=== PATIENT | female | born 1970 ===

== ENCOUNTER 2025-03-18 10:58 | Outpatient (AMB) | payer BC, SELFPAY ==
[2025-03-18 11:06] VITALS: BMI 30.2
--- NOTE | 2025-03-18 11:06 | A.PHYSOV ---
Vital Signs 03/18/25 11:06 Height 5 ft 4 in Weight 176 lb BMI 30.2 Intake Visit Reasons: Follow up after injection 02/09/25 Intake Note: Patient is a 54 year old female here for follow up 02/09/25 Left C3-C4, C4-C5, C5-C6 facet injections. Manufacturing Engineer Required: No Allergies NSAIDS (Non-Steroidal Anti-Inflamma (NSAIDS (NON-STEROIDAL ANTI-INFLAMMA) Allergy (Intermediate, Verified 03/18/25 11:08) SWELLING AND HIVES Sulfa (Sulfonamide Antibiotics) (SULFA (SULFONAMIDE ANTIBIOTICS)) Allergy (Intermediate, Verified 03/18/25 11:08) SWELLING/HIVES ibuprofen Allergy (Unknown, Verified 03/18/25 11:08) Unknown HPI Comments Details: History of Present Illness The patient is a 54 year old individual presenting for follow-up of neck and low back pain after therapeutic injections. She underwent left C3-4, C4-5, C5-6 facet injection on 02/09/2025. She reports approximately 90% improvement in pain. Previously, the patient experienced pain with quick neck movements, which has now resolved, and the initial sensation of a stick down the neck with aching has dissipated. The patient has not required any pain medication for the last two weeks. The patient also received an injection for low back pain which is reportedly working well, and the patient's back is doing really well. The neck injection was cortisone targeting arthritis, and the back injection targeted a nerve. The patient reports a new complaint of muscle spasms and achiness between the shoulder blades, predominantly on the left side, which radiates up towards the neck. This area was also inflamed when the neck pain was severe. The patient previously used Vicodin for pain but disliked the associated side effects. She is overall very happy with her results. Pain Description - Neck Pain (pre-injection): Previously restricted quick movements, especially when driving. - Sensation: Described as a feeling of having a stick all the way down the neck, which was followed by an ache. - Interference: Caused difficulty finding a comfortable pillow for sleep. - Mid-back Pain (current): Described as muscle spasms and achiness between the shoulder blades, more so on the left side, that runs up to the neck. - Location: Achiness is also noted right on the spine in the mid-back which is sore to touch. Procedure: Right L5 TFESI 06/06/2024 90% reduction of her pain Right L5 TFESI 11/22/2024 90% reduction of her pain Left C3-4, C4-5, C5-6 facet injection 90% relief FOR[facility]LY [facility], [facility] Surgical History (Updated 03/18/25 @ 11:09 by Divina Medina MA) H/O foot surgery H/O tubal ligation H/O shoulder surgery History of cholecystectomy Previous section Social History Alcohol intake: current Alcohol intake frequency: holidays/special occasions only Patient Tobacco Use Status: Never used Tobacco Use of substances other than those prescribed or required for medical reasons: Yes Substance Use Type: Marijuana Review of Systems Narrative Review of Systems - Musculoskeletal: Reports resolving neck and low back pain. - Reports new-onset muscle spasms and achiness between the shoulder blades. - Reports improved posture. - Neurological: Reports improved concentration. - Constitutional: Reports improved sleep. Physical Exam Exam Exam: Physical Exam Cervical Spine: Examination of the cervical spine, she is less tender to the left cervical paraspinal musculature. She has full range of motion of the cervical spine in all planes. Special Tests: Axial Compression test: Negative Spurlings test: Negative Lhermitte's sign is Negative Upper Extremities: Full range of motion bilateral upper extremities. Equal extractor operator helper strength bilaterally. Neuro: Sensation: Intact to upper extremities bilateral to light touch Strength C5 (Elbow Flexion): 5/5 on the left and 5/5 on the right. C6 (Elbow Ext): 5/5 on the left and 5/5 on the right. C7 (Elbow Ext): 5/5 on the left and 5/5 on the right. C8 (Finger Flex): 5/5 on the left and 5/5 on the right. T1 (Finger Abd/Add): 5/5 on the left and 5/5 on the right. DTR: C5 (Biceps): Left 2 Right 2 C6 (Brachioradialis): Left 2 Right 2 C7 (Triceps): Left 2 Right 2 Becerra sign: Negative No pathologic clonus. No involuntary movement. Vital Signs: BMI result Body Mass Index 30.2 Assessment & Plan Assessment & Plan (1) Cervicalgia: Code(s): M54.2 - Cervicalgia Category: Medical (2) Cervical radiculopathy: Code(s): M54.12 - Radiculopathy, cervical region Category: Medical Plan Pain Management - Affect: The patient feels pretty peaceful regarding physical pain reports improved concentration and sleep. - Analgesia: The patient reports 90% improvement in neck pain following a cortisone injection on February 09. - The patient has not used any pain medications for the past two weeks. - Adverse Effects: The patient dislikes the way Vicodin makes the patient feel. - Activities of Daily Living: The patient is now able to perform quick neck movements without pain, has improved posture, and is sleeping better. - Aberrant Drug Related Behaviors: None noted; the patient expressed an aversion to restarting opioid pain medication. Plan Patient was informed and verbally consented to the use of an ambient scribe for clinic note documentation during this visit. 1. Cervicalgia And Cervical Spondylosis The patient has experienced significant (90%) relief from neck pain following a cortisone injection on February 09, which targeted cervical arthritis. The beneficial effects of the injection typically last 3-6 months, though this can vary. If the pain returns, the patient is advised to contact the clinic for a possible repeat injection. 2. Low Back Pain The patient reports significant improvement in low back pain following a nerve-targeted injection. The current plan is to continue monitoring symptoms. 3. Myalgia Of Mid-Back The patient presents with a new complaint of muscle spasms and achiness in the mid-back and interscapular region, which is tender to palpation and thought to be muscular in origin. A muscle relaxer will be prescribed for nighttime use to help with symptoms and sleep. The patient was provided with a handout of exercises to help strengthen the spine. If the pain persists despite these interventions, a workup with an X-ray or MRI will be considered at the next follow-up visit. We discussed the benefits of proper nutrition and exercise to maintain a healthy body weight to improve longevity and function. We also discussed the benefits of proper lifting techniques, core strengthening and proper posture. Thank you for allowing me to participate in the care of your patient. Coding Level of Care Code Tele Est Pt Level 3 (09270) Diagnoses Cervicalgia M54.2 Cervical radiculopathy M54.12
--- OUTSIDE RECORDS SUMMARY | 2025-03-18 13:33 | XMS_ITS | Encounter Summary ---
Author Organization [facility] Address [address] [place] [address] Phone Support Name Relationship Address Phone Tang Torres Emergency Contact [address] [place] [address] Care Team Providers Care Manual Winder Name Role Phone Amita Desir MD Primary Care Prov ider Amita Desir MD Primary Care Prov ider Amita Desir MD Unavailable + Cristine Erwin MD Primary Care Provider Encounter Details Date Type Department Care Team (Latest Contact Info) Description 11/23/2017 Transcribe Orders [address] [place] [address] Zac Barbour PA [address] [place] [phone] Myalgia (Primary Dx); Hypothyroidism, unspecified type; Deficiency of other specified B group vitamins Social History Tobacco Use Types Packs/Day Years Used Date Smoking Tobacco: Never Assessed Comments Unknown Sex and Gender Information Value Date Recorded Sex Assigned at Female 04/14/2020 1:18 PM EST Legal Sex Female 8:47 AM EDT Gender Identity Female 04/14/2020 1:18 PM EST Sexual Orientation Choose not to disclose 2019 1:18 PM EST documented as of this encounter Plan of Treatment Not on file documented as of this encounter Results * Vitamin B12 (11/23/2017 8:58 AM EDT) VITAMIN B12 362 232 - 1,245 pg/mL [facility] Blood 11/23/2017 8:58 AM EDT 11/23/2017 9:04 AM EDT us Zac Barbour PA LAB BLOOD BKR ORDERABLES Final Result [address] [address] * (ABNORMAL) 25-OH vitamin D (11/23/2017 8:58 AM EDT) 25 OH VIT D (TOTAL) 15(L) 30 - 60 ng/mL [facility] Blood 11/23/2017 8:58 AM EDT 11/23/2017 9:04 AM EDT Zac Barbour PA LAB BLOOD BKR ORDERABLES Final Result Performing Organization Address [facility]/ZIP Co de Phone Number [address] [address] * Free T4 (11/23/2017 8:58 AM EDT) FREE T4 1.5 0.9 - 1.7 ng/dL [facility] Blood 11/23/2017 8:58 AM EDT 11/23/2017 9:04 AM EDT Zac Barbour PA LAB BLOOD BKR ORDERABLES Final Result Performing Organization Address [facility]/ZIP Co de Phone Number [address] [address] * TSH with reflex (11/23/2017 8:58 AM EDT) TSH 1.31 0.27 - 4.20 uIU/mL [facility] Blood 11/23/2017 8:58 AM EDT 11/23/2017 9:04 AM EDT us Zac VERA LAB BLOOD BKR ORDERABLES Final Result [address] [address] * Comprehensive metabolic panel (11/23/2017 8:58 AM EDT) SODIUM 141 133 - 146 mmol/L [facility] POTASSIUM 4.5 3.3 - 5.1 mmol/L [facility] CHLORIDE 102 96 - 108 mmol/L [facility] CO2 27 21 - 35 mmol/L [facility] BUN 10 6 - 19 mg/dL [facility] CREATININE 0.70 0.5 - 1.5 mg/dL [facility] GLUCOSE 89 70 - 99 mg/dL [facility] ALBUMIN 4.2 3.9 - 4.8 g/dL [facility] TOTAL PROTEIN 7.6 6.5 - 8.0 g/dL [facility] CALCIUM 9.1 8.4 - 10.3 mg/dL [facility] ALKALINE PHOSPHATASE 95 39 - 117 U/L [facility] TOTAL BILIRUBIN 0.5 0.0 - 1.2 mg/dL [facility] AST 18 0 - 37 U/L [facility] ALT 13 0 - 40 U/L [facility] GLOBULIN 3.4 1 - 4.8 g/dL [facility] EGFR 104 >59 mL/min/1.7 3m2 [facility] Comment:If patient is black, multiply result by 1.159. Estimated glomerular filtration rate calculated using the CKD-EPI equation. ANION GAP 17 10 - 20 mmol/L [facility] Blood 11/23/2017 8:58 AM EDT 11/23/2017 9:04 AM EDT us Zac VERA LAB BLOOD BKR ORDERABLES Final Result [address] [address] * CBC (11/23/2017 8:58 AM EDT) WBC 6.22 3.40 - 11.20 K/uL [facility] RBC 4.34 3.80 - 4.80 M/uL [facility] HGB 14.1 12.0 - 15.0 g/dL [facility] HCT 40.8 36.0 - 46.0 % [facility] PLT 232 130 - 400 K/uL [facility] MCV 94.0 79.0 - 98.0 fL [facility] MCH 32.5 27.0 - 34.8 pg [facility] MCHC 34.6 31.5 - 36.0 g/dL [facility] RDW 11.9 10.8 - 14.6 % [facility] MPV 9.4 9.4 - 12.4 fl [facility] NRBC 0.00 /100 WBCs [facility] ABSOLUTE NRBC 0.00 K/uL [facility] Blood 11/23/2017 8:58 AM EDT 11/23/2017 9:04 AM EDT us Zac VERA LAB BLOOD BKR ORDERABLES Final Result Performing Organization Address City/[facility]/ZIP Co de Phone Number [address] [address] * (ABNORMAL) Antinuclear antibody (TARAS) (11/23/2017 8:58 AM EDT) TARAS SCREEN ON HEP 2 Positive(A ) Negative [facility] Comment:An TARAS Titer has bee n reflexed. The results will follow. Blood 11/23/2017 8:58 AM EDT 11/23/2017 9:04 AM EDT Zac VERA LAB BLOOD BKR ORDERABLES Final Result Performing Organization Address City/[facility]/ZIP Co de Phone Number [address] [address] * Aldolase (11/23/2017 8:58 AM EDT) ALDOLASE 3.4 <7.7 U/L [facility] AND PAT+ Blood 11/23/2017 8:58 AM EDT 11/23/2017 9:04 AM EDT us Zac VERA LAB BLOOD ORDERABLES Final Res ult [facility] DPT OF LAB MED AND PAT+ [address] [place] [address] * Magnesium (11/23/2017 8:58 AM EDT) MAGNESIUM 2.0 1.6 - 2.6 mg/dL [facility] Blood 11/23/2017 8:58 AM EDT 11/23/2017 9:04 AM EDT us Zac VERA LAB BLOOD BKR ORDERABLES Final Result Performing Organization Address [facility] Co de Phone Number [address] [address] * CPK (creatine kinase) (11/23/2017 8:58 AM EDT) CREATINE KINASE 82 21 - 215 U/L [facility] Blood 11/23/2017 8:58 AM EDT 11/23/2017 9:04 AM EDT Zac VERA LAB BLOOD BKR ORDERABLES Final Result Performing Organization Address City/[facility] Co de Phone Number [address] [address] documented in this encounter Visit Diagnoses Diagnosis Myalgia- Primary Unspecified myalgia and myositis Hypothyroidism, unspecified type Deficiency of other specified B group vitamins documented in this encounter Additional Health Concerns Infection Onset Date Last Indicated Resolved Time CoV-Risk 10/29/2023 10/29/2023 11/09/2023 1:22 AM EDT documented as of this encounter Care Teams Manual Winder Relationship Specialty Start Date End Date Amita Desir MD [address] [phone] PCP - General Internal Medicine 11/23/17 04/12/20 Amita Desir MD [address] [place] [phone] PCP - General Internal Medicine 04/13/20 10/16/22 Cristine Erwin MD [address] [place] [address] PCP - General Family Medicine 10/17/22 Amita Desir MD [address] [place] [phone] Internal Medicine 04/13/20 documented as of this encounter Additional Source Comments The information contained in this document represents components of the legal health record. It is not the complete legal health record.[facility]
--- OUTSIDE RECORDS SUMMARY | 2025-03-18 13:33 | XMS_ITS | Encounter Summary ---
Author Organization [facility] Address [address] [place] [address] Phone Support Name Relationship Address Phone Tang Torres Emergency Contact [address] [place] [address] Care Team Providers Care Vacuum Closing Machine Operator Name Role Phone Amita Desir MD Unavailable + Cristine Erwin MD Primary Care Provider [phone] Encounter Details Date Type Department Care Team (Late st Contact Info) Description 08/02/2023 Procedure Pass [facility], Ct Scan - [facility] [address] [place] [address] Social History Tobacco Use Types Packs/Day Years Used Date Smoking Tobacco: Former Cigarettes 2 2016 Smokeless Tobacco: Never Comments:1 pack a week Alcohol Use Standard Drinks/Week Comments Yes 0 (1 standard drink = 0.6 oz pur e alcohol) occasionally Education Answer Date Recorded Are you interested in more education? Not on jj e 08/18/2022 Are you concerned about learning? Not on file 08/18/2022 No 08/18/2022 No 08/18/2022 Digital Access Answer Date Recorded No 09/14/2022 No 09/14/2022 Reliable internet access at home? Not on file 09/14/2022 Device with a working camera? Not on file Intimate Partner Violence Answer Date R ecorded Are you denied basic needs s uch as food, clothing, or medical care? No 08/02/2023 In the past 12 months have y ou been in a relationship with a person who hurts, threatens, or tries to control you? No 08/02/2023 Are you denied basic needs s uch as food, clothing, or medical care? No 08/02/2023 In the past 12 months have y ou been in a relationship with a person who hurts, threatens, or tries to control you? No 08/02/2023 Comments No Sex and Gender Information Value Date Recorded Sex Assigned at Female 04/14/2020 1:18 PM EST Legal Sex Female 8:47 AM EDT Gender Identity Female 04/14/2020 1:18 PM EST Sexual Orientation Choose not to disclose 2019 1:18 PM EST documented as of this encounter Functional Status * Calculated C-SSRS Risk Score (Lifetime/Recent) Answer Date of Assessment Author No Risk Indicated 08/02/2023 12:55 PM EDT Estella Camargo RN * [place] Suicide Severity Rating Scale (Screener/Recent Self-Report) Question Answer Date of Assessment Author 1. Wish to be (Past 1 Month) No 08/02/2023 12:55 PM EDT Evangelist Parker RN 2. Non-Specific Active Suicidal Thoughts (Past 1 Month) No 08/02/2023 12:55 PM EDT Evangelist Parker RN 6. Suicidal Behavior (Lifetime) No 08/02/2023 12:55 PM EDT Evangelist Parker RN documented as of this encounter Plan of Treatment Not on file documented as of this encounter Visit Diagnoses Not on filedocumented in this encounter Additional Health Concerns Infection Onset Date Last Indicated Resolved Time CoV-Risk 10/29/2023 10/29/2023 11/09/2023 1:22 AM EDT documented as of this encounter Care Teams Vacuum Closing Machine Operator Relationship Specialty [place] [address] [place] [phone] PCP - General Family Medicine 10/17/22 Amita Desir MD [facility] [address] [phone] Internal Medicine 04/13/20 documented as of this encounter Additional Source Comments The information contained in this document represents components of the legal health record. It is not the complete legal health record.[facility]
--- OUTSIDE RECORDS SUMMARY | 2025-03-18 13:33 | XMS_ITS | Encounter Summary ---
Author Organization [facility] Address [address] [place] [address] Phone Support Name Relationship Address Phone Tang Torres Emergency Contact [address] [place] [address] Care Team Providers Care Warehouse Administrator Name Role Phone Amita Desir MD Primary Care Prov ider Amita Desir MD Primary Care Prov ider Amita Desir MD Unavailable + Cristine Erwin MD Primary Care Provider [phone] Encounter Details Date Type Department Care Team (Latest Contact Info) Description 12/20/2017 Transcribe Orders [address] [place] [address] Zac Barbour PA [address] [place] [phone] Arthralgia, unspecified joint (Primary Dx) Social History Tobacco Use Types Packs/Day Years [...] documented as of this encounter Results * C-Reactive Protein (12/20/2017 4:59 PM EDT) Pathologist [facility] C REACTIVE PROTEIN 2.3 0.0 - 4.0 mg/L [facility] Blood 12/20/2017 4:59 PM EDT 12/20/2017 5:17 PM EDT Zac Km PA LAB BLOOD BKR ORDERABLES Final Result Performing Organization Address [facility]/ZIP Co de Phone Number [address] [address] * Sedimentation rate (ESR) (12/20/2017 4:59 PM EDT) [facility] ESR 2 0 - 20 mm/h [facility] Blood 12/20/2017 4:59 PM EDT 12/20/2017 5:17 PM EDT Zac Km PA LAB BLOOD BKR ORDERABLES Final Result Performing Organization Address [facility] Co de Phone Number [address] [address] * Lyme screen with reflex to Western blot, blood (12/20/2017 4:59 PM EDT) [facility] Lyme AB IgG Negative Negative [facility] Lyme AB IgM Negative Negative [facility] Blood 12/20/2017 4:59 PM EDT 12/20/2017 5:17 PM EDT Zac Bourgeoisden PA LAB BLOOD BKR ORDERABLES Final Result Performing Organization Address [facility] Co de Phone Number [address] [address] * Rheumatoid factor (12/20/2017 4:59 PM EDT) [facility] RHEUMATOID FACTOR <10.0 0.0 - 14.0 IU/ml [facility] Blood 12/20/2017 4:59 PM EDT 12/20/2017 5:17 PM EDT Zac VERA LAB BLOOD BKR ORDERABLES Final Result [facility] [address] [place], [place] [id number] * Parvovirus B19 antibodies, IgG, IgM (12/20/2017 4:59 PM EDT) Pathologist [facility] PARVO B19 IGG Positive Negative [facility] PARVO B19 IGM Negative Negative [facility] PARVO B19 INTERP SEE NOTE [facility] Comment: (NOTE) Results suggest past infection. ADDITIONAL INFORMATION This test has been modified from the news librarian's instructions. Its performance characteristics were determined by [facility] in a manner consistent with CLIA requirements. This test has not been cleared or approved by the U.S. Food and Drug Administration. Blood 12/20/2017 4:59 PM EDT 12/20/2017 5:17 PM EDT Zac VERA LAB BLOOD ORDERABLES Final Res ult Performing Organization Address [facility] Co de Phone Number [facility] [address] [place] [place] [address] * HLA-B27, blood (12/20/2017 4:59 PM EDT) Pathologist [facility] HLA-B27 RESULT Negative Not Applicable [facility] DPT OF LAB MED AND PAT+ INTERPRETATION SEE NOTE [facility] DPT OF LAB MED AND PAT+ Comment: (NOTE) HLA-B27 antigen was not detected. ADDITIONAL INFORMATION Method: Flow Cytometry Performing Laboratory CLIA# [id number] Blood 12/20/2017 4:59 PM EDT 12/20/2017 5:17 PM EDT us Zac VERA LAB BLOOD ORDERABLES Final Res ult [facility] DPT OF LAB MED AND PAT+ [address] [place] [address] * Uric acid (12/20/2017 4:59 PM EDT) URIC ACID 5.5 2.4 - 7.0 mg/dL [facility] Blood 12/20/2017 4:59 PM EDT 12/20/2017 5:17 PM EDT us Zac VERA LAB BLOOD BKR ORDERABLES Final Result Performing Organization Address City/[facility]/ZIP Co de Phone Number [facility] [address] [place] [address] documented in this encounter Visit Diagnoses Diagnosis Arthralgia, unspecified joint- Primary documented in this encounter Additional Health Concerns Infection Onset Date Last Indicated Resolved Time CoV-Risk 10/29/2023 10/29/2023 11/09/2023 1:22 AM EDT documented as of this encounter Care Teams Warehouse Administrator Relationship Specialty Start Date End Date Amita Desir MD [address] [place] [phone] PCP - General Internal Medicine 11/23/17 04/12/20 Amita Desir MD [address] [place] [phone] PCP - General Internal Medicine 04/13/20 10/16/22 Cristine Erwin MD [address] [place] [address] PCP - General Family Medicine 10/17/22 Amita Desir MD [address] [place] [address] [place] [phone] Internal Medicine 04/13/20 documented as of this encounter Additional Source Comments The information contained in this document represents components of the legal health record. It is not the complete legal health record.[facility]
--- OUTSIDE RECORDS SUMMARY | 2025-03-18 13:34 | XMS_ITS | Encounter Summary ---
Author Organization [facility] Address [address] [place] [address] [place] [address] Phone Support Name Relationship Address Phone Tang Torres Emergency Contact [address] [place] [address] Care Team Providers Care Vehicle Maintenance Technician Name Role Phone Amita Desir MD Primary Care Prov ider Amita Desir MD Unavailable + Cristine Erwin MD Primary Care Provider Encounter Details Date Type Department Care Team (Late st Contact Info) Description 11/03/2020 Ancillary Orders [facility], X-Ray - [address] [place] [address] Milady Rainey, STOCK BLENDER [address] [place] [phone] [email or web address] [employer] Right shoulder pain, unspecified chronicity Social History Tobacco Use Types Packs/Day Years Used Date Smoking Tobacco: Never Smokeless Tobacco: Never Alcohol Use Standard Drinks/Week Comments Not Currently 0 (1 standard drink = 0.6 oz pur e alcohol) Comments Unknown Sex and Gender Information Value Date Recorded Sex Assigned at Female 04/14/2020 1:18 PM EST Legal Sex Female 8:47 AM EDT Gender Identity Female 04/14/2020 1:18 PM EST Sexual Orientation Choose not to disclose 2019 1:18 PM EST documented as of this encounter Plan of Treatment Not on file documented as of this encounter Visit Diagnoses Diagnosis Right shoulder pain, unspecified chronicity documented in this encounter Additional Health Concerns Infection Onset Date Last Indicated Resolved Time CoV-Risk 10/29/2023 10/29/2023 11/09/2023 1:22 AM EDT documented as of this encounter Care Teams Vehicle Maintenance Technician Relationship Specialty Start Date End Date Amita Desir MD [address] [place] [phone] PCP - General Internal Medicine 04/13/20 10/16/22 Cristine Erwin MD [address] [place] [phone] PCP - General Family Medicine 10/17/22 Amita Desir MD [address] [place] [phone] Internal Medicine 04/13/20 documented as of this encounter Additional Source Comments The information contained in this document represents components of the legal health record. It is not the complete legal health record.[facility]
--- OUTSIDE RECORDS SUMMARY | 2025-03-18 13:34 | XMS_ITS | Encounter Summary ---
Author Organization [facility] Address [address] [place] [address] [place] [address] Phone Support Name Relationship Address Phone Tang Torres Emergency Contact [address] [facility] [address] [place] [address] Care Team Providers Care Roasterman Name Role Phone Amita Desir MD Primary Care Prov ider Amita Desir MD Unavailable + Cristine Erwin MD Primary Care Provider [phone] Encounter Details Date Type Department Care Team (Late st Contact Info) Description 01/14/2021 Procedure Pass [place] Admitting Dept - Virtual Department [address] [place] [address] Social History Tobacco Use Types Packs/Day Years Used Date Smoking Tobacco: Former Cigarettes 2 2016 Smokeless Tobacco: Never Comments:1 pack a week Alcohol Use Standard Drinks/Week Comments Never 0 (1 standard drink = 0.6 oz pur e alcohol) Comments No Sex and Gender Information Value [...] documented as of this encounter Care Teams Roasterman Relationship Specialty Start Date End Date Amita Desir MD [address] [place] [phone] PCP - General Internal Medicine 04/13/20 10/16/22 Cristine Erwin MD [address] [place] [phone] PCP - General Family Medicine 10/17/22 Amita Desir MD [address] [place] [phone] Internal Medicine 04/13/20 documented as of this encounter Additional Source Comments The information contained in this document represents components of the legal health record. It is not the complete legal health record.[facility]
--- OUTSIDE RECORDS SUMMARY | 2025-03-18 13:34 | XMS_ITS | Encounter Summary ---
Author Organization [facility] Address [address] [place] [address] [place] [address] Phone Support Name Relationship Address Phone Tang Torres Emergency Contact [address] [place] [address] Care Team Providers Care Nutritionalist Name Role Phone Amita Desir MD Primary Care Prov ider Amita Desir MD Unavailable + Cristine Erwin MD Primary Care Provider [phone] Encounter Details Date Type Department Care Team (Late st Contact Info) Description 10/12/2020 Procedure Pass [facility], [address] [place] [address] Social History Tobacco Use Types Packs/Day Years [...] documented as of this encounter Care Teams Nutritionalist Relationship Specialty Start Date End Date Amita Desir MD [address] [phone] PCP - General Internal Medicine 04/13/20 10/16/22 Cristine Erwin MD [address] [place] [phone] PCP - General Family Medicine 10/17/22 [place] [address] [place] [phone] Internal Medicine 04/13/20 documented as of this encounter Additional Source Comments The information contained in this document represents components of the legal health record. It is not the complete legal health record.[facility]
--- OUTSIDE RECORDS SUMMARY | 2025-03-18 13:34 | XMS_ITS | Encounter Summary ---
Author Organization [facility] Address [address] [place] [address] [place] [address] Phone Support Name Relationship Address Phone Tang Torres Emergency Contact [address] [place] [address] Care Team Providers Care Php Engineer Name Role Phone Amita Desir MD Primary Care Prov ider Amita Desir MD Unavailable + Cristine Erwin MD Primary Care Provider Encounter Details Date Type Department Care Team (Latest Contact Info) Description 06/21/2020 Ancillary Orders Virtual Department [address] [place] [address] Milady Rainey, BUTTON RECLAIMER [address] [place] [phone] [email or web address] Cervical radiculopathy Social History Tobacco Use Types Packs/Day Years [...] documented as of this encounter Results * XR CERVICAL SPINE 4-5 VIEWS (06/22/2020 1:08 PM EST) Anatomical Region Laterality Modality C-spine Computed Radiogr aphy 06/22/2020 1:02 PM EST Impressions 06/22/2020 1:05 PM EST Mild C5-6 and C6-7 disc disease and mild bilateral C6-7 neural foraminal stenosis. Narrative 06/22/2020 1:05 PM EST HISTORY: As above. COMPARISON: None. CERVICAL SPINE RADIOGRAPH FINDINGS: 5 images obtained. Mild reversal of lordosis at C5. No fracture or malalignment. Minimal C5-6 and C6-7 disc space narrowing with mild anterior wedging and endplate spurring. Mild multilevel facet arthropathy. Mild bilateral C6-7 neural foraminal stenosis due to spurring. No cervical ribs. No destructive or suspicious bone lesions. Prevertebral soft tissues are normal. Imaged lung apices are clear. Procedure Note Stewart Elizabeth MD - 06/22/2020 HISTORY: As above. COMPARISON: None. CERVICAL SPINE RADIOGRAPH FINDINGS: 5 images obtained. Mild reversal of lordosis at C5. No fracture or malalignment. Minimal C5-6and C6-7 disc space narrowing with mild anterior wedging and endplatespurring. Mild multilevel facet arthropathy. Mild bilateral C6-7 neuralforaminal stenosis due to spurring. No cervical ribs. No destructive orsuspicious bone lesions. Prevertebral soft tissues are normal. Imaged lungapices are clear. IMPRESSION: Mild C5-6 and C6-7 disc disease and mild bilateral C6-7 neural foraminalstenosis. Milady Rainey NP IMG XR SPINE Final Result documented in this encounter Visit Diagnoses Diagnosis Cervical radiculopathy Brachial neuritis or radiculitis nos Cervical radiculopathy Brachial neuritis or radiculitis nos documented in this encounter Additional Health Concerns Infection Onset Date Last Indicated Resolved Time CoV-Risk 10/29/2023 10/29/2023 11/09/2023 1:22 AM EDT documented as of this encounter Care Teams Php Engineer Relationship Specialty Start Date End Date Amita Desir MD [address] [place] [phone] PCP - General Internal Medicine 04/13/20 10/16/22 Cristine Erwin MD [address] [place] [phone] PCP - General Family Medicine 10/17/22 Aimta Desir MD [address] [place] [phone] Internal Medicine 04/13/20 documented as of this encounter Additional Source Comments The information contained in this document represents components of the legal health record. It is not the complete legal health record.[facility]
--- OUTSIDE RECORDS SUMMARY | 2025-03-18 13:34 | XMS_ITS | Encounter Summary ---
Author Organization [facility] Address [address] [place] [address] [place] [phone] Phone Support Name Relationship Address Phone Tang Torres Emergency Contact [address] [place] [address] Care Team Providers Care Pigs Feet Cleaner Name Role Phone Amita Desir MD Primary Care Prov ider Amita Desir MD Unavailable + Cristine Erwin MD Primary Care Provider [phone] Reason for Referral * MRI/CAT Scan - Closed Specialty Diagnoses / Procedures Referred By Contwayne t Referred To Contact Radiology Diagnoses Strain of musc/tend the rotator cuff of right shoulder, subs Pain and swelling of right shoulder Procedures MRI Shoulder (Right) CHG MRI, JOINT UPPER EXTREM CHG MRI, JOINT UPPER EXTREM W/CONTRAST CHG MRI, JOINT UPPER EXTREM COMBO Milady Rainey NP [address] [place] [address] Phone: tel: fax: [email or web address] [address] [place] [address] Phone: tel: Referral ID Status Reason Start Date Expiration Date Visits Re quested Visits Authorized [id number] Closed 11/17/2020 01/15/2021 1 1 Encounter Details Date Type Department Care Team (Latest Contact Info) Description 10/12/2020 Transcribe Orders Virtual Department [address] [place] [phone] Milady Rainey, SLAB PULLER [address] [place] [phone] [email or web address] Strain of musc/tend the rotator cuff of right shoulder, subs (Primary Dx); Pain and swelling of right shoulder Social History Tobacco Use Types Packs/Day Years [...] documented as of this encounter Results * MRI SHOULDER WITHOUT CONTRAST (RIGHT) (11/24/2020 8:52 AM EDT) Anatomical Region Laterality Modality Shoulder Right Magnetic Resonan ce 11/24/2020 8:57 AM EDT Impressions 11/24/2020 9:04 AM EDT 1.Partial-thickness supraspinatus tendon tear. 2.Lateral acromial downsloping and spurring which may contribute to rotator cuff impingement. 3.Small joint effusion. 4.Bursitis. Narrative 11/24/2020 9:04 AM EDT COMPARISON: Right shoulder x-ray 11/03/2020. TECHNIQUE: Exam performed on a 1.5 Chani high-field MRI scanner. Axial T1 and proton density with fat suppression, oblique coronal proton density with fat suppression and T2 with fat suppression, oblique sagittal T1 and T2 with fat suppression sequences were obtained. MRI RIGHT SHOULDER FINDINGS: Acromion: No os acromiale. Type II acromion. Mild lateral downsloping and small osteophyte causing mild mass-effect upon the supraspinatus tendon. No anterior downsloping. Rotator cuff muscle/tendon: Small area of intrasubstance fluid signal intensity within the supraspinatus tendon. No rotator cuff muscle edema or atrophy. Labrum/biceps tendon: Small amount of fluid in the bicipital groove. No biceps tendon or labral tear. Bone marrow/joint: Joint spaces are preserved. No malalignment. No destructive or suspicious bone lesions. Small joint effusion. Small amount of fluid in the subcoracoid and subacromial subdeltoid bursa. No suprascapular or spinoglenoid notch mass. Procedure Note Stewart Elizabeth MD - 11/24/2020 COMPARISON: Right shoulder x-ray 11/03/2020. TECHNIQUE: Exam performed on a 1.5 Chani high-field MRI scanner. Axial T1and proton density with fat suppression, oblique coronal proton densitywith fat suppression and T2 with fat suppression, oblique sagittal T1 andT2 with fat suppression sequences were obtained. MRI RIGHT SHOULDER FINDINGS: Acromion: No os acromiale. Type II acromion. Mild lateral downsloping andsmall osteophyte causing mild mass-effect upon the supraspinatus tendon.No anterior downsloping. Rotator cuff muscle/tendon: Small area of intrasubstance fluid signalintensity within the supraspinatus tendon. No rotator cuff muscle edema oratrophy. Labrum/biceps tendon: Small amount of fluid in the bicipital groove. Nobiceps tendon or labral tear. Bone marrow/joint: Joint spaces are preserved. No malalignment. Nodestructive or suspicious bone lesions. Small joint effusion. Small amountof fluid in the subcoracoid and subacromial subdeltoid bursa. Nosuprascapular or spinoglenoid notch mass. IMPRESSION: 1.Partial-thickness supraspinatus tendon tear. 2.Lateral acromial downsloping and spurring which may contribute torotator cuff impingement. 3.Small joint effusion. 4.Bursitis. us Milady Rainey NP IMG MR EXTREMITY Final Result * XR SHOULDER 2 VIEWS (RIGHT) (11/03/2020 2:37 PM EDT) Anatomical Region Laterality Modality Shoulder Right Computed Radiogr aphy 11/03/2020 4:58 PM EDT Impressions 11/03/2020 4:58 PM EDT No fracture or dislocation. Narrative 11/03/2020 4:58 PM EDT XR SHOULDER 2 OR MORE VIEWS (RIGHT) COMPARISON: None FINDINGS: No fracture. Normal glenohumeral alignment and joint space. Normal acromioclavicular joint. Procedure Note Orquidea Elizabeth MD - 11/03/2020 XR SHOULDER 2 OR MORE VIEWS (RIGHT) COMPARISON: None FINDINGS: No fracture. Normal glenohumeral alignment and joint space. Normalacromioclavicular joint. IMPRESSION: No fracture or dislocation. Milady Rainey SLAB PULLER IMG XR UPPER EXTREMITY Final Res ult documented in this encounter Visit Diagnoses Diagnosis Strain of musc/tend the rotator cuff of right shoulder, subs- Primary Pain and swelling of right shoulder Strain of musc/tend the rotator cuff of right shoulder, subs Pain and swelling of right shoulder Strain of musc/tend the rotator cuff of right shoulder, subs Pain and swelling of right shoulder documented in this encounter Additional Health Concerns Infection Onset Date Last Indicated Resolved Time CoV-Risk 10/29/2023 10/29/2023 11/09/2023 1:22 AM EDT documented as of this encounter Care Teams Pigs Feet Cleaner Relationship Specialty Start Date End Date Amita Desir MD [id number] [address] [phone] PCP - General Internal Medicine 04/13/20 10/16/22 Cristine Erwin MD [address] [place] [phone] PCP - General Family Medicine 10/17/22 Amita Desir MD [address] [place] [phone] Internal Medicine 04/13/20 documented as of this encounter Additional Source Comments The information contained in this document represents components of the legal health record. It is not the complete legal health record.[facility]
--- OUTSIDE RECORDS SUMMARY | 2025-03-18 13:34 | XMS_ITS | Encounter Summary ---
Author Organization [facility] Address [address] [place] [address] Phone Support Name Relationship Address Phone Tang Torres Emergency Contact [address] [place] [address] Care Team Providers Care Early Childhood Lead Teacher Name Role Phone Amita Desir MD Primary Care Prov ider Amita Desir MD Primary Care Prov ider Amita Desir MD Unavailable + Cristine Erwin MD Primary Care Provider Encounter Details Date Type Department Care Team (Late st Contact Info) Description 09/18/2019 Transcribe Orders [address] [place] [address] Thien Jennings PA [address] [place] [address] Social History Tobacco Use Types Packs/Day Years [...] documented as of this encounter Care Teams Early Childhood Lead Teacher Relationship Specialty Start Date End Date Amita Desir MD [facility] [address] [phone] PCP - General Internal Medicine 11/23/17 04/12/20 Amita Desir MD [address] [place] [phone] PCP - General Internal Medicine 04/13/20 10/16/22 Cristine Erwin MD [address] [place] [phone] PCP - General Family Medicine 10/17/22 Amita Desir MD [address] [place] [phone] Internal Medicine 04/13/20 documented as of this encounter Additional Source Comments The information contained in this document represents components of the legal health record. It is not the complete legal health record.[facility]
--- OUTSIDE RECORDS SUMMARY | 2025-03-18 13:34 | XMS_ITS | Encounter Summary ---
Author Organization [employer] [facility] Address [address] [place] [address] [place] [address] Phone Support Name Relationship Address Phone Tang Torres Emergency Contact [address] [place] [address] Care Team Providers Care Petroleum Geologist Name Role Phone Amita Desir MD Primary Care Prov ider Amita Desir MD Unavailable + Cristine Erwin MD Primary Care Provider Encounter Details Date Type Department Care Team (Late st Contact Info) Description 04/13/2020 Procedure Pass [facility], Ct Scan - [facility] [address] [place] [address] Social History Tobacco Use Types Packs/Day Years [...] Date of Assessment Author No Risk Indicated 04/13/2020 1:08 PM EST Faraz Kent RN * [place] Suicide Severity Rating Scale (Screener/Recent Self-Report) Question Answer Date of Assessment Author 1. Wish to be (Past 1 Month) No 04/13/2020 1:08 PM Román Fontaine RN 2. Non-Specific Active Suici kalie Thoughts (Past 1 Month) No 04/13/2020 1:08 PM Luis A Fontaine RN 6. Suicidal Behavior (Lifetime) No 0 1:08 PM Faraz Fontaine, CURTIS documented as of this encounter Plan of Treatment Not on file documented as of this encounter Visit Diagnoses Not on filedocumented in this encounter Additional Health Concerns Infection Onset Date Last Indicated Resolved Time CoV-Risk 10/29/2023 10/29/2023 11/09/2023 1:22 AM EDT documented as of this encounter Care Teams Petroleum Geologist Relationship Specialty Start Date End Date Amita Desir MD [address] [place] [phone] PCP - General Internal Medicine 04/13/20 10/16/22 Cristine Erwin MD [address] [place] [phone] PCP - General Family Medicine 10/17/22 Amita Desir MD [address] [place] [phone] Internal Medicine 04/13/20 documented as of this encounter Additional Source Comments The information contained in this document represents components of the legal health record. It is not the complete legal health record.[facility]
--- OUTSIDE RECORDS SUMMARY | 2025-03-18 13:34 | XMS_ITS | Clinical Summary ---
Author Organization [facility] Address [address] [place] [phone] Phone Support Name Relationship Address Phone Tang Torres Emergency Contact [address] [place] [address] Care Team Providers Care Welder Manufacture Name Role Phone Amita Desir MD Unavailable + Cristine Erwin MD Primary Care Provider Allergies Active Allergy Reactions Criticality Noted Date Comments Sulfamethoxazole-Trimethopr im Hives,Swelling 04/13/2020 Black Dye Hives 12/06/2020 Gluten 12/06/2020 Ibuprofen 12/06/2020 Naproxen 12/06/2020 Nsaids (Non-Steroidal Anti-Inflammatory Drug) Hives,Rash,Swelling Low 04/13/2020 Itchy throat Sulfa (Sulfonamide Antibiotics) Rash,Swelling Low 04/30/2022 Medications methylphenidate HCl 27 MG CR tablet Take 27 mg by mouth daily. 1 Active levothyroxine (SYNTHROID, LEVOTHROID) 112 MCG tablet Take 100 mcg by mouth daily. Active levonorgestreL (LILETTA) 20.1 mcg/24 hrs (6 yrs) 52 mg IUD daily. Activ e gabapentin (NEURONTIN) 100 MG capsule Take 100 mg by mouth 3 (three) times a day. 1 Active ergocalciferol (DRISDOL) 50,000 unit capsule Take 1 capsule by mouth once a week. 1 Active cyanocobalamin, vitamin B-12, (VITAMIN B-12 ORAL) 0 Refills, Maintenance, 09/20/22 9:47:00 EDT, Partial fill upon patient request if the prescription is for a schedule II opioid drug. 3 Active escitalopram oxalate (LEXAPRO) 20 MG tablet Take 20 mg by mouth daily. Active levothyroxine 13 mcg/mL Soln 75 mcg 1 qd Act efe crisaborole (EUCRISA) 2 % ointment Apply by topical route for 60 days. Active Active Problems Problem Noted Date Diagnosed Date Acute sciatica 06/15/2024 Class 1 obesity 06/15/2024 Degenerative arthritis 06/15/2024 Vitamin D deficiency 06/07/2018 Depressive disorder 08/22/2012 Overview (06/15/2024): RECORDED 08/22/2012 1:51PM BY GEOVANNY MURPHY MA, OFFICE VISIT Bipolar disorder 08/22/2012 Overview (06/15/2024): RECORDED 08/22/2012 12:56PM BY GEOVANNY MURPHY MA, OFFICE VISIT Hypothyroidism 08/22/2012 Irritable bowel syndrome 08/22/2012 Migraine 08/22/2012 Overview (06/15/2024): RECORDED 08/22/2012 12:56PM BY GEOVANNY MURPHY MA, OFFICE VISIT Pure hypercholesterolemia 08/22/2012 Overview (06/15/2024): RECORDED 08/22/2012 1:51PM BY GEOVANNY MURPHY MA, OFFICE VISIT Allergic rhinitis 08/16/2012 Overview (06/15/2024): RECORDED 08/16/2012 10:22AM BY GEOVANNY MURPHY MA, ANNOTATION/ADDENDUM Chronic low back pain 08/16/2012 Overview (06/15/2024): IMPRESSION: NEW LOW BACK PAIN, PT WITH LOWER LUMBAR PAIN, NO WEAKNESS IN EXTREMEITIES, NO ROLE FOR MRI, HEAT, REST, MEDS BELOW, CANNOT TAKE MOTRIN, CALL IF NOT IMPROVING; RECORDED 08/16/2012 10:23AM BY GEOVANNY MURPHY MA, ANNOTATION/ADDENDUM Encounters Date Type Department Care Team Description 01/21/2025 7:47 AM EDT - 01/21/2025 11:59 PM EDT Hospital Encounter [facility] [address] [place] [address] Cristine Erwin MD Discharge Disposition: Home or Self Care 12/17/2024 4:20 PM EDT - 12/17/2024 7:05 PM EDT Emergency [facility] [address] [place] [address] Discharge Disposition: Home or Self Care from Last 3 Months Social History Tobacco Use Types Packs/Day Years Used Date Smoking Tobacco: Former Cigarettes 2 2016 Smokeless Tobacco: Never Tobacco Cessation:Counseling Given: Not Answered Comments:1 pack a week Alcohol Use Standard Drinks/Week Comments Yes 0 (1 standard drink = 0.6 oz pur e alcohol) occasionally Education Answer Date Recorded Are you interested in more education? Not on jj e 08/18/2022 Are you concerned about learning? Not on file 08/18/2022 No 08/18/2022 No 08/18/2022 Food Answer Date Recorded Within the past 6 months we worried whether our food would run out before we got money to buy more. Never True 12/17/2024 Within the past 6 months the food we bought just didn't last and we didn't have enough money to get more. Never True Residential Stability Answer Date Recor ded What is your housing situation today? I have ellie sing 12/17/2024 How many times have you move d in the past 12 months? Zero (I did not move) 12/17/2024 Paying for Meds Answer Date Recorded Do you have trouble paying for medicines? No 12/17/2024 Paying Utility Bills Answer Date Record ed Do you have trouble paying your heating or elect ricity bill? No 12/17/2024 Transportation Answer Date Recorded Has the lack of transportati on kept you from medical appointments or from getting medications? No 12/17/2024 Digital Access Answer Date Recorded No 12/17/2024 Yes 12/17/2024 Do you have reliable internet access at home? Ye s 12/17/2024 Do you have a device (e.g., phone, tablet, computer) with a working camera? Yes 12/17/2024 Intimate Partner Violence Answer Date R ecorded Are you denied basic needs s uch as food, clothing, or medical care? No 12/17/2024 In the past 12 months have y ou been in a relationship with a person who hurts, threatens, or tries to control you? No 12/17/2024 Are you denied basic needs s uch as food, clothing, or medical care? No 12/17/2024 In the past 12 months have y ou been in a relationship with a person who hurts, threatens, or tries to control you? No 12/17/2024 Comments No Sex and Gender Information Value Date Recorded Sex Assigned at Female 04/14/2020 1:18 PM EST Legal Sex Female 8:47 AM EDT Gender Identity Female 04/14/2020 1:18 PM EST Sexual Orientation Choose not to disclose 2019 1:18 PM EST Last Filed Vital Signs Vital Sign Reading Time Taken Comments Blood Pressure 127/88 12/17/2024 5:50 PM EDT Pulse 48 12/17/2024 5:50 PM EDT Temperature 37 C (98.6 F) 12/17/2024 5:50 PM EDT Respiratory Rate 18 12/17/2024 5:50 PM EDT Oxygen Saturation 99% 12/17/2024 5:50 PM EDT Inhaled Oxygen Concentration - - Weight 86.2 kg (190 lb) 12/17/2024 1:33 PM EDT Height 162.6 cm (5' 4 ) 12/17/2024 1:33 PM EDT Body Mass Index 32.61 12/17/2024 1:33 PM EDT Plan of Treatment Health Maintenance Due Date Last Done Comments DEPRESSION SCREENING 1982 SMOKING Hx and SMOKELESS TOBACCO SCREENING 12/02/1983 HEPATITIS C SCREENING 1988 HIV ONE-TIME SCREENING (18-65 YEARS) 1988 PAP SMEAR 12/02/1991 COLOGUARD 12/02/2015 COLONOSCOPY 12/02/2015 COLORECTAL CANCER SCREENING 12/02/2015 FIT TEST 12/02/2015 FOBT 12/02/2015 SIGMOIDOSCOPY 12/02/2015 VIRTUAL COLONOSCOPY 12/02/2015 MAMMOGRAM 07/08/2020 07/08/2018 PNEUMOCOCCAL VACCINES (50+ years) (1 of 1 - PCV) 2020 ZOSTER VACCINES (1 of 2) 2020 INFLUENZA VACCINE (#1) 2024 9, 02/07/2016, 12/22/2014, Additional history exists COVID-19 VACCINE ( season) 2024 03/10/2021, 07/24/2020, 07/03/2020 TSH LEVEL 01/21/2026 01/21/2025, 07/23, 04/09/2023, Additional history exists Adult Td,Tdap Booster 05/01/2026 05/01/2016 , 04/23/2015, 04/23/2013, Additional history exists SCREENING FOR DIABETES 01/22/2028 01/21/2025, 2023 LIPID PANEL 01/21/2030 01/21/2025, 12/24, 10/17/2022, Additional history exists RSV VACCINE (1 - 1-dose 75+ series) 2045 HEPATITIS A VACCINES Aged Out No long er eligible based on patient's age to complete this topic HIB VACCINES Aged Out No longer eligi ble based on patient's age to complete this topic MENINGOCOCCAL VACCINES (ACWY) Aged Out No longer eligible based on patient's age to complete this topic MENINGOCOCCAL VACCINES (B) Aged Out N o longer eligible based on patient's age to complete this topic Medical Devices Implanted Type Area Campaign Advisor Device Identifier Shelf Expiration Date Model / Serial / Lot Intrauterine Device Intrauterine Device [employer] NODATA Mouth Description:Metal Retainer Screw Implanted:Qty: 2 Screw Left: Foot [place] Suture 4.5mm Arthroscopy Reelx Stt Peek Ss Core Knotless Shapr Tip Expandable Bx/5ea - [id number] Implanted:Qty: 3 on 01/14/2021 by Mendez Neil DO at [facility] Right: Acromial Process [employer] 08/25/2022 [id number] / / [id number] Procedures Procedure Name Priority Date/Time Associated Diagnosis Comments 25-OH VITAMIN D Routine 01/21/2025 7:51 AM EDT Vitamin D deficiency, unspecified Hypothyroidism, unspecified type Mixed hyperlipidemia THYROID STIMULATING HORMONE (TSH) Routine 01/21/2025 7:51 AM EDT Vitamin D deficiency, unspecified Hypothyroidism, unspecified type Mixed hyperlipidemia FREE T4 Routine 01/21/2025 7:51 AM EDT Vitamin D deficiency, unspecified Hypothyroidism, unspecified type Mixed hyperlipidemia LIPID PANEL Routine 01/21/2025 7:51 AM EDT Vitamin D deficiency, unspecified Hypothyroidism, unspecified type Mixed hyperlipidemia CBC AND DIFFERENTIAL Routine 01/21/2025 7:51 AM EDT Vitamin D deficiency, unspecified Hypothyroidism, unspecified type Mixed hyperlipidemia COMPREHENSIVE METABOLIC PANEL (CMP) Routine 01/21/2025 7:51 AM EDT Vitamin D deficiency, unspecified Hypothyroidism, unspecified type Mixed hyperlipidemia from Last 3 Months Results * Comprehensive metabolic panel (01/21/2025 7:51 AM EDT) SODIUM 139 133 - 146 mmol/L [facility] POTASSIUM 4.1 3.3 - 5.1 mmol/L [facility] CHLORIDE 104 96 - 108 mmol/L [facility] CO2 26 21 - 35 mmol/L [facility] BUN 8 6 - 19 mg/dL [facility] CREATININE 0.70 0.5 - 1.5 mg/dL [facility] GLUCOSE 88 70 - 99 mg/dL [facility] ALBUMIN 4.2 3.9 - 4.8 g/dL [facility] TOTAL PROTEIN 7.0 6.5 - 8.0 g/dL [facility] CALCIUM 9.4 8.4 - 10.3 mg/dL [facility] ALKALINE PHOSPHATASE 110 39 - 117 U/L [facility] TOTAL BILIRUBIN 0.7 0.0 - 1.2 mg/dL [facility] AST 22 0 - 37 U/L [facility] ALT 18 0 - 40 U/L [facility] GLOBULIN 2.8 1 - 4.8 g/dL [facility] EGFR 103 >59 mL/min/1.7 3m2 [facility] Comment:Estimated glomerular filtration rate calculated using the CKD-EPI refit equation. ANION GAP 13 10 - 20 mmol/L [facility] Blood 01/21/2025 7:51 AM EDT 01/21/2025 7:55 AM EDT Cristine Erwin MD LAB BLOOD BKR ORDERABLES Fi nal Result Performing Organization Address City[facility]/ZIP Co de Phone Number [address] [phone] * (ABNORMAL) 25-OH vitamin D (01/21/2025 7:51 AM EDT) 25 OH VIT D (TOTAL) 65(H) 30 - 60 ng/mL [facility] Blood 01/21/2025 7:51 AM EDT 01/21/2025 7:55 AM EDT Cristine Erwin MD LAB BLOOD BKR ORDERABLES Fi nal Result Performing Organization Address [facility]/ZIP Co de Phone Number [address] [phone] * (ABNORMAL) CBC and differential (01/21/2025 7:51 AM EDT) WBC 4.65 4.00 - 11.00 K/uL [facility] RBC 4.30 4.00 - 5.20 M/uL [facility] HGB 14.3 12.0 - 16.0 g/dL [facility] HCT 41.5 36.0 - 46.0 % [facility] PLT 236 150 - 450 K/uL [facility] MCV 96.5 80.0 - 100.0 fL [facility] MCH 33.3(H) 27.0 - 31.0 pg [facility] MCHC 34.5 32.0 - 36.0 g/dL [facility] RDW 11.9 11.5 - 14.5 % [facility] MPV 10.3 8.4 - 12.0 fL [facility] NRBC 0.00 0.00 /100 WBCs [facility] ABSOLUTE NRBC 0.00 0.00 K/uL [facility] DIFF METHOD Auto [facility] NEUTS 53.6 48.0 - 76.0 % [facility] LYMPHS 28.6 18.0 - 41.0 % [facility] MONOS 13.1(H) 4.0 - 11.0 % [facility] EOS 2.6 0.0 - 5.0 % [facility] BASOS 1.7(H) 0.0 - 1.5 % [facility] Granulocytes, immature (%) 0.4 0.0 - 0.9 % [facility] ABSOLUTE NEUTS 2.49 1.92 - 7.60 K/uL [facility] ABSOLUTE LYMPHS 1.33 0.72 - 4.10 K/uL [facility] ABSOLUTE MONOS 0.61 0.16 - 1.10 K/uL [facility] ABSOLUTE EOS 0.12 0.00 - 0.50 K/uL [facility] ABSOLUTE BASOS 0.08 0.00 - 0.15 K/uL [facility] Granulocytes, immature 0.02 0.00 - 0.09 K/uL [facility] Blood 01/21/2025 7:51 AM EDT 01/21/2025 7:55 AM EDT Cristine Erwin MD LAB BLOOD BKR ORDERABLES Fi nal Result Performing Organization Address [facility]/ZIP Co de Phone Number [address] [phone] * (ABNORMAL) TSH (01/21/2025 7:51 AM EDT) TSH 0.07(L) 0.27 - 4.20 uIU/mL [facility] Blood 01/21/2025 7:51 AM EDT 01/21/2025 7:55 AM EDT Cristine Erwin MD LAB BLOOD BKR ORDERABLES Fi nal Result Performing Organization Address [facility]/ZIP Co de Phone Number [address] [phone] * (ABNORMAL) Free T4 (01/21/2025 7:51 AM EDT) FREE T4 1.8(H) 0.9 - 1.7 ng/dL [facility] Blood 01/21/2025 7:51 AM EDT 01/21/2025 7:55 AM EDT Cristine Erwin MD LAB BLOOD BKR ORDERABLES Fi nal Result Performing Organization Address [facility] Co de Phone Number [address] [phone] * Lipid panel (01/21/2025 7:51 AM EDT) Pathologist [facility] HDL 46 mg/dL [facility] Comment: Interpretation <40 mg/dL: Low HDL cholesterol (major risk factor for CHD) Greater than or equal to 60 mg/dL: High HDL cholesterol ( negative risk factor for CHD) HDL - cholesterol is affected by a number of factors, e.g. smoking, excerise, hormones, sex and age. CHOLESTEROL 192 0 - 240 mg/dL [facility] TRIGLYCERIDES 95 30 - 160 mg/dL [facility] LDL 127 50 - 129 mg/dL [facility] Comment: LDL levels in terms of risk for coronary heart disease: <100 mg/dL: Optimal 100-129 mg/dL: Near or above optimal 130-159 mg/dL: Borderline high 160-189 mg/dL: High >190 mg/dL: Very High CARDIAC RISK RATIO 4.2 3.3 - 4.4 C [facility] Blood 01/21/2025 7:51 AM EDT 01/21/2025 7:55 AM EDT Cristine Erwin MD LAB BLOOD BKR ORDERABLES Fi nal Result Performing Organization Address [facility]/ZIP Co de Phone Number [address] [phone] from Last 3 Months Insurance [facility] [place] [address] [address] [facility] [place] [address] Care Teams Welder Manufacture Relationship Specialty Start Date End Date Cristine Erwin MD [address] [phone] PCP - General Family Medicine 10/17/22 Amita Desir MD [address] [phone] Internal Medicine 04/13/20 Additional Source Comments The information contained in this document represents components of the legal health record. It is not the complete legal health record.[facility]
== END 2025-03-18 11:28 | disposition home or self-care (01) ==
LOC: HO.HPHYS 10:59
PROVIDERS: PCP Student in an Organized Health Care Education/Training Program; Visit Provider Physician Assistant
DX: M54.2 Cervicalgia (principal); M54.12 Radiculopathy, cervical region
CPT/HCPCS: 99213